=== PATIENT | male | born 1990 | race Two or more races ===

== ENCOUNTER 2018-10-20 20:09 | Emergency (ER) | payer SELFPAY ==
[~2018-10-20] VITALS: Ht 175.3 cm; Wt 99.8 kg
[2018-10-20 20:15] VITALS: BP 113/75
--- NOTE | 2018-10-20 20:37 | NUR ---
BIBF. C/O "BEEN TAKING FENTANYL FOR 30X DAYS. NOT FEELING WELL TODAY" -SOB -N.V AOX4. AMBULATORY VSS.
--- NOTE | 2018-10-20 20:39 | NUR ---
Dr. Woodruff at [facility] for eval. pt refused care, risk and benefits explained x3. pt strongly refused care. pt states "i just want fentanyl" Patient eloped from facility.
== END 2018-10-20 20:41 | disposition left against medical advice (07) ==
LOC: ER 20:09
DX: Z53.21 Procedure and treatment not carried out due to patient leaving prior to being seen by health care provider (principal)